=== PATIENT | male | born 1980 | race Caucasian/White ===

== ENCOUNTER 2020-07-08 15:21 | Emergency (ER) | payer OTHER ==
[~2020-07-08 15:21] MED LIST: BACTRIM DS TAB1 EACH PO; FLAGYL500 MG PO; IBUPROFEN600 MG PO; K-DUR TAB 20 M20 MEQ PO; NORCO 5-325 TA1 EACH PO; NORCO 7.5-3251 EACH PO; PAXIL10 MG PO; PHENERGAN 25 MG25 M1 PO; PREDNISONE 10 M10 MG PO; VENTOLIN HFA 66.7 GM INH; ZOFRAN 4 MG TAB4 MG PO; ZOFRAN4 MG PO
[2020-07-08 16:24] LABS: HEMOGLOBIN 15.8 gm/dl (14.0-17.5); RED BLOOD COUNT 4.99 M/UL (4.20-5.50); WHITE BLOOD COUNT 8.1 K/UL (4.5-11.0)
[2020-07-08 16:50] LABS: BUN/CREATININE RATIO 10 (0-10)
== END 2020-07-08 18:34 | disposition home or self-care (01) ==
LOC: ER1 15:21
PROVIDERS: Physician Assistant
DX: R07.89 Other chest pain (principal); I10 Essential (primary) hypertension; J45.909 Unspecified asthma, uncomplicated; Z90.49 Acquired absence of other specified parts of digestive tract
CPT/HCPCS: 71045; 80053; 82550; 82553; 83874; 84484; 85025; 93005; 99285

== ENCOUNTER → 2021-02-25 | Outpatient (CLI) | payer OTHER | LOC: LBRF 16:13 | DX: K12.1 Other forms of stomatitis (principal) | CPT/HCPCS: 87206 ==

== ENCOUNTER → 2021-10-07 | Outpatient (CLI) | payer OTHER | LOC: KOH-I 15:30 | DX: R22.1 Localized swelling, mass and lump, neck (principal) | CPT/HCPCS: 76536 ==

== ENCOUNTER 2021-10-13 15:01 | Emergency (ER) | payer OTHER ==
[2021-10-13 16:06] LABS: HEMOGLOBIN 15.7 gm/dl (14.0-17.5); RED BLOOD COUNT 4.74 M/UL (4.20-5.50); WHITE BLOOD COUNT 7.8 K/UL (4.5-11.0)
[2021-10-13 16:44] LABS: BUN/CREATININE RATIO 6 (0-10)
[2021-10-13 21:48] LABS: BUN/CREATININE RATIO 5 (0-10)
[2021-10-13] MEDS ORDERED: ZOFRAN ODT 4 MG4 MG PO (22:23)
[2021-10-13] MEDS ORDERED: K-TAB ER20 MEQ PO (22:23)
== END 2021-10-13 22:55 | disposition home or self-care (01) ==
LOC: ER1 15:01
PROVIDERS: Physician Assistant
DX: E87.1 Hypo-osmolality and hyponatremia (principal); E87.6 Hypokalemia; Z88.8 Allergy status to other drugs, medicaments and biological substances
CPT/HCPCS: 80048; 80053; 82550; 82553; 84484; 85025; 93005; 99284; J3480

== ENCOUNTER 2021-12-23 21:17 | Observation (INO) | payer OTHER ==
[~2021-12-23] VITALS: Ht 167.6 cm; Wt 65.8 kg
[~2021-12-23 21:17] MED LIST changes: +K-TAB ER20 MEQ PO; +ZOFRAN ODT 4 MG4 MG PO
[2021-12-23 21:42] LABS: RED BLOOD COUNT 4.5 M/UL (4.20-5.50); WHITE BLOOD COUNT 8.3 K/UL (4.5-11.0)
[2021-12-23 22:05] LABS: BUN/CREATININE RATIO 6 (0-10)
[2021-12-24 03:56] LABS: BUN/CREATININE RATIO 9 (0-10)
[2021-12-24] MEDS ORDERED: DULERA 200 MCG8.8 GM PO (11:27)
[2021-12-24] MEDS ORDERED: LOPRESSOR50 MG PO (11:28)
[2021-12-24] MEDS ORDERED: CREON DR 36,001 EACH PO (11:28)
[2021-12-24] MEDS ORDERED: OMEPRAZOLE20 MG PO (11:28)
[2021-12-24] MEDS ORDERED: VITAMIN D31250 MCG PO (11:29)
[2021-12-25 02:52] LABS: HEMOGLOBIN 14.7 gm/dl (14.0-17.5); RED BLOOD COUNT 4.39 M/UL (4.20-5.50)
[2021-12-25 03:00] LABS: WHITE BLOOD COUNT 4.4 K/UL (4.5-11.0)
[2021-12-25 03:15] LABS: BUN/CREATININE RATIO 8 (0-10)
[2021-12-25] MEDS ORDERED: PAXLOVID 300-11 EACH PO (11:49)
[2021-12-25] MEDS ORDERED: OMNICEF 300 MG300 MG PO (12:33)
[2021-12-25] MEDS ORDERED: DECADRON6 MG PO (12:36)
[2021-12-25] MEDS ORDERED: ZOFRAN 4 MG TAB4 MG PO (12:53)
[2021-12-25] MEDS ORDERED: MAGNESIUM400 M2 PO (12:58)
[2021-12-25] MEDS ORDERED: K-TAB ER20 MEQ PO (12:58)
[2021-12-25] MEDS ORDERED: ELIQUIS 2.5 MG2.5 MG PO (13:34)
== END 2021-12-25 18:30 | disposition home or self-care (01) ==
LOC: ER1 21:17 → CDU 12-24 07:20 → M/S 12-24 07:20
PROVIDERS: Physician Assistant; Student in an Organized Health Care Education/Training Program; ADMIT Family Medicine
DX: B34.9 Viral infection, unspecified (principal); U07.1 COVID-19; E87.1 Hypo-osmolality and hyponatremia; E87.6 Hypokalemia; E83.42 Hypomagnesemia; E86.9 Volume depletion, unspecified; I10 Essential (primary) hypertension; H72.93 Unspecified perforation of tympanic membrane, bilateral; J45.20 Mild intermittent asthma, uncomplicated; K90.9 Intestinal malabsorption, unspecified; Z86.16 Personal history of COVID-19; Z88.1 Allergy status to other antibiotic agents; Z79.899 Other long term (current) drug therapy
CPT/HCPCS: 36415; 71045; 80048; 80053; 83615; 83735; 84132; 84295; 85025; 85379; 86140; 94760; 96361; 96374; 96375; 99285; G0378; J0696; J1100; J1650; J1885; J2765; J3475; U0002